=== PATIENT | female | born 1945 | race Caucasian/White ===

== ENCOUNTER → 2017-08-27 | Outpatient (CLI) | payer MEDICARE, OTHER ==
[~2017-08-27] VITALS: Ht 165.1 cm; Wt 61.8 kg
[2017-08-27] VITALS (23 sets, daily range): BP systolic 141–174; BP diastolic 54–81
[~2017-08-27] MED LIST: ATORVASTATIN CA80 MG PO; ISOSORBIDE MONO60 M2 PO; LAMICTAL 100MG100 MG PO; LONSURF 20 MG-1 EACH PO; MULTIPLE VITAMI1 TA5 PO; NITROSTAT0.6 M1 SL; ROXICODONE 55 MG/TAB PO; TOPROL XL 50MG50 MG PO; VITAMIN B-650 M1 PO; ZOFRAN4 M2 PO
== END ==
LOC: AMSURD 12:13
PROVIDERS: Internal Medicine Medical Oncology
DX: C18.4 Malignant neoplasm of transverse colon (principal); C78.01 Secondary malignant neoplasm of right lung; C78.02 Secondary malignant neoplasm of left lung; C78.7 Secondary malignant neoplasm of liver and intrahepatic bile duct
CPT/HCPCS: J1644; J7050

== ENCOUNTER → 2017-10-30 | Outpatient (CLI) | payer MEDICARE, OTHER ==
[2017-10-30] VITALS (15 sets, daily range): BP systolic 101–183; BP diastolic 47–75
[~2017-10-30] VITALS: Ht 165.1 cm; Wt 61.8 kg
--- NOTE | 2017-10-30 22:23 | NUR ---
SECOND BAG OF PACKED RED BLOOD CELLS COMPLETED, NORMAL SALINE INFUSED UNTIL LINE CLEARED, IVL FLUSHED AND DISCONTINUED, BLEEDING STOPPED WITH PRESSURE HELD TO SITE, COTTON BALLS SECURED WITH MEHRDAD, D/C VITALS TAKEN, PATIENT FEELS GOOD, NO S/S OF TRANSFUSION REACTION, HERE TO DRIVE HER HOME, PATIENT AMBUALTES OUT WITHOUT DIFFICULTY, GAIT STEADY, IV PUMP CLEARED WITH AN INTAKE OF 657 CC OF BLOOD,
== END ==
LOC: AMSURD 16:55
DX: C18.4 Malignant neoplasm of transverse colon (principal); C78.01 Secondary malignant neoplasm of right lung; C78.02 Secondary malignant neoplasm of left lung; C78.7 Secondary malignant neoplasm of liver and intrahepatic bile duct

== ENCOUNTER 2017-11-09 10:58 | Emergency (ER) | payer MEDICARE ==
[~2017-11-09] VITALS: Ht 165.1 cm; Wt 62.1 kg
[2017-11-09 11:58] LABS: HEMATOCRIT 27.8 % (37.0-47.0); MEAN CELL VOLUME 99 fl (78-100); MEAN CORPUSCULAR HEMOGLOBIN 32 pg (27-31); MEAN CORPUSCULAR HGB CONC 32 g/dL (33-37); MEAN PLATELET VOLUME 9.5 fl (7.4-10.4); PLATELET COUNT 191 K/mm3 (130-400); WHITE BLOOD COUNT 8.2 K/mm3 (4.8-10.8)
[2017-11-09 12:00] LABS: RED CELL DISTRIBUTION WIDTH 20.7 % (11.5-14.5)
[2017-11-09 12:25] LABS: LYMPHOCYTE 5 % (20-51); MONOCYTE 14 % (3-10); NEUTROPHILS 80 % (42-75)
[2017-11-09 12:59] LABS: ERYTHROCYTE SEDIMENTATION RATE 102 mm/hr (0-30)
[2017-11-09 13:10] VITALS: BP 137/55
== END 2017-11-09 13:10 | disposition home or self-care (01) ==
LOC: ED 10:58
PROVIDERS: Family Medicine
DX: M76.62 Achilles tendinitis, left leg (principal); M25.561 Pain in right knee

== ENCOUNTER → 2018-01-27 | Outpatient (CLI) | payer MEDICARE, OTHER ==
[2018-01-27 12:28] LABS: HEMATOCRIT 23.1 % (37.0-47.0); HEMOGLOBIN 7.5 g/dL (12.5-16.0)
== END ==
LOC: LAB 10:48 → AMSURD 10:48
PROVIDERS: Internal Medicine Medical Oncology
DX: C18.4 Malignant neoplasm of transverse colon (principal); C78.01 Secondary malignant neoplasm of right lung; C78.02 Secondary malignant neoplasm of left lung; C78.7 Secondary malignant neoplasm of liver and intrahepatic bile duct

== ENCOUNTER → 2018-01-28 | Outpatient (CLI) | payer MEDICARE, OTHER ==
[2018-01-28] VITALS (8 sets, daily range): BP systolic 96–137; BP diastolic 53–80
[~2018-01-28] VITALS: Ht 165.1 cm; Wt 62.1 kg
== END ==
LOC: AMSURD 08:48
DX: C18.4 Malignant neoplasm of transverse colon (principal); C78.01 Secondary malignant neoplasm of right lung; C78.02 Secondary malignant neoplasm of left lung; C78.7 Secondary malignant neoplasm of liver and intrahepatic bile duct

== ENCOUNTER → 2018-04-09 | Outpatient (CLI) | payer MEDICARE, OTHER ==
[2018-01-28 13:54] VITALS: BP 114/54
[~2018-04-09] MED LIST changes: +BENADRYL PO; +PHARMASSURE MA500 MG PO
[2018-04-09 10:51] LABS: HEMATOCRIT 18.7 % (37.0-47.0)
== END ==
LOC: LAB 09:50
PROVIDERS: Internal Medicine Medical Oncology
DX: C18.4 Malignant neoplasm of transverse colon (principal); C78.01 Secondary malignant neoplasm of right lung; C78.02 Secondary malignant neoplasm of left lung; C78.7 Secondary malignant neoplasm of liver and intrahepatic bile duct

== ENCOUNTER → 2018-04-10 | Outpatient (CLI) | payer MEDICARE, OTHER ==
[~2018-04-10] VITALS: Ht 165.1 cm; Wt 60.9 kg
[2018-04-10] VITALS (18 sets, daily range): BP systolic 97–136; BP diastolic 50–70
== END ==
LOC: AMSURD 13:37
DX: C18.4 Malignant neoplasm of transverse colon (principal); C78.01 Secondary malignant neoplasm of right lung; C78.02 Secondary malignant neoplasm of left lung; C78.7 Secondary malignant neoplasm of liver and intrahepatic bile duct
CPT/HCPCS: J7050; P9040

== ENCOUNTER → 2018-04-30 | Outpatient (CLI) | payer MEDICARE, OTHER ==
[2018-04-10 18:30] VITALS: BP 130/70
[2018-04-30 16:11] LABS: HEMATOCRIT 22.6 % (37.0-47.0); HEMOGLOBIN 7.3 g/dL (12.5-16.0)
== END ==
LOC: LAB 15:05
PROVIDERS: Internal Medicine Medical Oncology
DX: C18.4 Malignant neoplasm of transverse colon (principal)

== ENCOUNTER → 2018-05-01 | Outpatient (CLI) | payer MEDICARE, OTHER ==
[2018-05-01] VITALS (8 sets, daily range): BP systolic 101–135; BP diastolic 51–81
[~2018-05-01] VITALS: Ht 165.1 cm; Wt 60.9 kg
== END ==
LOC: AMSURD 12:42
DX: C18.4 Malignant neoplasm of transverse colon (principal)
CPT/HCPCS: J7050